=== PATIENT | female | born 1990 | race Caucasian/White ===

== ENCOUNTER 2017-07-29 09:59 | Emergency (ER) | payer BC, OTHER ==
[2017-07-29 10:55] LABS: PLATELET COUNT 289 10^3/uL (150-400)
[2017-07-29] MEDS ORDERED: LORazepam 2 MG/ML INJ IVP ONE (11:06)
[2017-07-29] MEDS ORDERED: LORazepam 2 MG/ML INJ ONE (11:07)
[2017-07-29] MEDS ORDERED: IOPAMIDOL (ISOVUE-300) 100 ML BTL ONE (12:55)
--- NOTE | 2017-07-29 14:04 | EDPHY ---
H & P Stated Complaint: bloody diarrhea abd pain x 1 week - Personal History LMP (Females 10-55): Extended Cycle BCP/Inj Current Tetanus/Diphtheria Vaccine: Unsure - Medical/Surgical History Hx Asthma: No Hx Chronic Respiratory Disease: No Hx Diabetes: No Hx Cardiac Disease: No Hx Renal Disease: No Hx Cirrhosis: No Hx Alcoholism: No Hx HIV/AIDS: No Hx Splenectomy or Spleen Trauma: No Other PMH: anxiety - Social History Smoking Status: Never smoked Time Seen by Provider: 07/29/17 10:36 HPI/ROS: Chief complaint: Abdominal pain History of present illness: This is a 26-year-old female who presents to the emergency department for evaluation of abdominal pain. Patient has had pain for the last 10 days. Pain is primarily in the lower aspect of the abdomen. It is been slowly worsening. She has developed some diarrhea. It is occasionally bloody with bright red blood. She has had some intermittent nausea and vomiting. She denies precipitating factors. She denies alleviating factors. She denies other associated signs or symptoms including no fevers no urinary symptoms. She does have an appointment with a product tester fiberglass in a few weeks. Review of systems: A 10 point review of systems was obtained and other than described above was negative (Arnoldo Alonzo) - Physical Exam Exam: General Appearance: Alert, nontoxic. Eyes: Pupils equal and round no pallor or injection. ENT, Mouth: Mucous membranes moist. Respiratory: There are no retractions, lungs are clear to auscultation. Cardiovascular: Regular rate and rhythm. Gastrointestinal: Bowel sounds are normal. Abdomen is soft, nondistended. There is mild tenderness in the lower quadrants, left greater than right. No peritoneal signs. Neurological: Alert and oriented x4. Strength and sensation intact and symmetrical. Skin: Warm and dry, no rashes. Musculoskeletal: Neck is supple non tender. Extremities are symmetrical, full range of motion. Psychiatric: Patient is oriented X 3, there is no agitation. (Arnoldo Alonzo) Constitutional: Initial Vital Signs Temperature (C) 36.6 C 07/29/17 10:07 Heart Rate 102 H 07/29/17 10:07 Respiratory Rate 20 07/29/17 10:07 Blood Pressure 124/87 H 07/29/17 10:07 O2 Sat (%) 98 07/29/17 10:07 O2 Delivery Mode Room Air Allergies/Adverse Reactions: No Known Allergies Allergy (Unverified 07/29/17 10:04) Home Medications: Medication Instructions Recorded Hyoscyamine Oral Liquid 07/29/17 Microgestin 21 1.5-30 Tab 07/29/17 Ondansetron Odt [Zofran Odt 4 mg 4 mg PO Q4 #10 tab 07/29/17 (*)] Medical Decision Making - Diagnostics Imaging: Discussed imaging studies w/ service or work dispatcher chief Radiologist ED Course/Re-evaluation: Patient seen under the supervision of my secondary supervising physician Dr. Jeanine Horta. Patient presents to the emergency department for increasing abdominal pain now with occasional bloody stools and nausea and vomiting. On presentation she is nontoxic. Workup ultimately reveals evidence of a colitis. I have consulted with on-call gastroenterology, Dr. Ash. He does report patient is scheduled to see them in their clinic. He would like to see her sooner rather than later and asked that she call the clinic to discuss an earlier appointment. Patient will be discharged home. Home care is discussed including using Zofran for nausea and vomiting. She is given referral information to Dr. Ash's office. Strict return precautions are given. Patient voiced understanding and agreement with plan. (Arnoldo Alonzo) Differential Diagnosis: Included but not limited to gastritis, gastroenteritis, biliary tract disease, pancreatitis, colitis, appendicitis, diverticulitis, an associated complications (Arnoldo Alonzo) Other Provider: The patient was evaluated and managed by the Physician Asset Protection Lead. My co- signature indicates that I have reviewed this chart and I agree with the findings and plan of care as documented. I am the secondary supervising physician. (Jeanine Horta) - Data Points Laboratory Results: Laboratory Results 07/29/17 10:45 07/29/17 11:46 Medications Given: Discontinued Medications Lorazepam (Ativan Injection) 1 mg IVP EDNOW ONE Stop: 07/29/17 11:07 Last Admin: 07/29/17 11:08 Dose: 1 mg Departure - Departure Disposition: Home, Routine, Self-Care Clinical Impression: Colitis Condition: Good Instructions: Colitis (ED) Additional Instructions: Please call your product tester fiberglass today for continued evaluation and care. Please let the office staff know that I talk with Dr. Ash in the emergency room today and he wants to see you as soon as possible. Use Zofran as directed as needed for nausea and vomiting If symptoms worsen or new symptoms develop return to the emergency room for recheck Referrals: Renea Villdea MD [Primary Care Provider] - As per Instructions Trev Ash MD [Medical Doctor] - As per Instructions Prescriptions: Ondansetron Odt [Zofran Odt 4 mg (*)] 4 mg PO Q4 #10 tab
[2017-07-29 14:42] VITALS: BP 105/66; PULSE 75; RESP 16; TEMP 97.9; O2SAT 97
== END 2017-07-29 14:42 | disposition home or self-care (01) ==
DX: K52.9 Noninfective gastroenteritis and colitis, unspecified (principal)
CPT/HCPCS: 96374; J2060; Q9967